=== PATIENT | male | born 2005 | race Caucasian/White ===

== ENCOUNTER 2025-02-12 13:33 | Emergency (ER) | payer MEDICAID, SELFPAY ==
[2025-02-12 13:35] VITALS: BP 134/81; PULSE 64; RESP 16; TEMP 36.8; O2SAT 100
--- NOTE | 2025-02-12 13:38 | ECG_ITS ---
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 Measurements Intervals [place] Rate: 64 P: 10 LA: 147 QRS: 6 QRSD: 86 T: 14 QT: 370 QTc: 382 Interpretive Statements SINUS RHYTHM WITH SINUS ARRHYTHMIA No previous ECG available for comparison Electronically Signed On 02-12-2025 20:04:08 MANAGER AGRICULTURE by Dmitriy Vo M.D. [id number]
--- OUTSIDE RECORDS SUMMARY | 2025-02-12 13:44 | XMS_ITS | Encounter Summary ---
Author Organization [facility] Address [address] [place] [address] Care Team Providers Care Special Needs Babysitter Name Role Phone Unavailable Primary Care Provider Unavailabl e Encounter Details Date Type Department Care Team (Latest Contact Info) Description 2003 Outpatient Historical [facility] [place] [address] [place] [address] Fahad Rich MD [address] [place] [phone] Routine child health exam (Primary Dx); VACCINE DIS COMBINATIONS NEC; VACCINE FOR H FLU TYPE B; VACCINE FOR STREP PNEUMONIAE Social History Tobacco Use Types Packs/Day Years Used Date Smoking Tobacco: Never Assessed Sex and Gender Information Value Date Recorded Sex Assigned at Not on file 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 Gender Identity Not on file Sexual Orientation Not on file documented as of this encounter Plan of Treatment Not on file documented as of this encounter Visit Diagnoses Diagnosis Routine child health exam- Primary Routine infant or child health check Need for prophylactic vaccination and inoculation against other combinations of diseases Need for prophylactic vaccination against Hemophilus influenza type B (Hib) Need for prophylactic vaccination against Streptococcus pneumoniae (pneumococcus) Need for prophylactic vaccination against streptococcus pneumoniae (pneumococcus) documented in this encounter
--- OUTSIDE RECORDS SUMMARY | 2025-02-12 13:44 | XMS_ITS | Encounter Summary ---
Author Organization [facility] Address [address] [facility] Attn: Epic [place] [address] Care Team Providers Care Management Architect Name Role Phone Unavailable Primary Care Provider Unavailabl e Encounter Details Date Type Department Care Team (Late st Contact Info) Description 2003 Inpatient Historical Sandra Cole MD NO ADDRESS ON FILE SINGL BORN IN HOSP-W C/DELIVERY (Primary Dx) Social History Tobacco Use Types Packs/Day Years Used Date Smoking Tobacco: Never Assessed Sex and Gender Information Value Date Recorded Sex Assigned at Not on file 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
--- OUTSIDE RECORDS SUMMARY | 2025-02-12 13:44 | XMS_ITS | Clinical Summary ---
Author Organization [facility] Address [address] [facility] Attn: Epic Prelude ADT [place] [address] Care Team Providers Care Secondary Market Manager Name Role Phone Unavailable Primary Care Provider Unavailabl e Immunizations Immunization Administration Dates Next Due (M-M-R II/PRIORIX)(12 MO UP) MEASLES, MUMPS AND RUBELLA VIRUS VACCINE, 0.5 ML IM/SUBCUT 04/12/2004 (VARIVAX)(12 MOS UP)VARICELL A VIRUS VACCINE (PF) 0.5 ML, SUB CUT 04/12/2004 Dt Dtp Dtap Vaccine 07/21/2004, 4,2003,2003 HIB, Unspecified Formulation 04/12/2004, 2003,2003,2003 Hepatitis B Vaccine 2003,2003,2003 IPV/OPV 2003,2003,2003 Pneumococcal 7-valent conjug ate vaccine IM 04/12/2004,2003,2003,2003 Social History Tobacco Use Types Packs/Day Years Used Date Smoking Tobacco: Never Assessed Sex and Gender Information Value Date Recorded Sex Assigned at Not on file 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
--- OUTSIDE RECORDS SUMMARY | 2025-02-12 13:44 | XMS_ITS | Clinical Summary ---
Author Organization [facility] Address [address] [place] [address] Phone Care Team Providers Care Skein Mercerizing Machine Operator Name Role Phone Unavailable Primary Care Provider Unavailabl e Allergies Active Allergy Reactions Criticality Noted Date Comments Montelukast Unknown 01/19/2022 Medications HYDROcodone-apolonia taminophen (NORCO) 7.5-325 mg TabletIndicatio ns:Penile lesion Take 1 Tablet by mouth every 6 hours as needed for Pain, Moderate. 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 Gender Identity Not on file Sexual Orientation Not on file Last Filed Vital Signs Vital Sign Reading Time Taken Comments Blood Pressure 130/71 01/27/2022 9:33 AM CDT Pulse 73 01/27/2022 9:33 AM CDT Temperature 36.1 C (97 F) 01/27/2022 9:33 AM CDT Respiratory Rate 18 01/27/2022 9:33 AM CDT Oxygen Saturation 100% 01/27/2022 9:33 AM CDT Inhaled Oxygen Concentration - - Weight 117.3 kg (258 lb 9.6 oz) 02/16/2022 1:33 PM METAL MIXER Height 177.8 cm (5' 10 ) 02/16/2022 1:33 PM METAL MIXER Body Mass Index 37.11 02/16/2022 1:33 PM METAL MIXER Plan of Treatment Health Maintenance Due Date Last Done Comments DTAP/TDAP/TD VACCINES (5 - Tdap) 2014 07/21/2004, 2003, 2003, Additional history exists HPV VACCINES (1 - Male 3-dos e series) 2018 INFLUENZA VACCINE (#1) 2024 HEPATITIS B VACCINES Completed 2003, 2003, 2003 Insurance [facility] [employer] [facility] MEDICAID
--- OUTSIDE RECORDS SUMMARY | 2025-02-12 13:44 | XMS_ITS | Encounter Summary ---
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
--- OUTSIDE RECORDS SUMMARY | 2025-02-12 13:44 | XMS_ITS | Encounter Summary ---
Author Organization [facility] Address [address] [place] [address] Care Team Providers Care Lens Engraver Name Role Phone Unavailable Primary Care Provider Unavailabl e Encounter Details Date Type Department Care Team (Latest Contact Info) Description 2003 Outpatient Historical [facility]- [place] [address] [place] [address] Fahad Rich MD [address] [place] [phone] ESOPHAGEAL REFLUX (Primary Dx) Social History Tobacco Use Types Packs/Day Years Used Date Smoking Tobacco: Never Assessed Sex and Gender Information Value Date Recorded Sex Assigned at Not on file 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
--- NOTE | 2025-02-12 14:12 | XRR_ITS ---
PROCEDURE INFORMATION: Exam: XR Chest Exam date and time: 02/12/2025 2:11 PM Age: 19 years old Clinical indication: Pain; Angina pectoris; Additional info: Chest pain TECHNIQUE: Imaging protocol: Radiologic exam of the chest. Views: 1 view. COMPARISON: No relevant prior studies available. FINDINGS: Lungs: Clear. No consolidation. Pleural spaces: No significant pleural effusion. No pneumothorax. Heart/Mediastinum: Within normal limits. Bones/joints: Intact. Other findings: None. XR/XR chest 1V portable [id number] IMPRESSION: No radiographic evidence of acute cardiopulmonary disease.
--- NOTE | 2025-02-12 14:17 | W.ED.CHESTPA ---
HPI - Chest Pain General: Chief Complaint: Chest Pain Stated Complaint: CP Time Seen by Provider: 02/12/25 14:07 History of Present Illness: Patient is a pleasant 19-year-old gentleman with history of HTN that presents to the emergency room due to chest tightness. This started today. Patient states he has been compliant to his metoprolol 100 mg, and lisinopril 20 mg. He does not have any shortness of breath just a tight feeling in his chest. This was much worse before he appeared here with association of palpitations. He denies any cough, cold, fevers. He states that he does watch his salt, and is trying to lose weight. This occurred this morning. This has continued until just before presentation to ED. He does have a family history of elevated blood pressure, with his sister also noted to have high blood pressure. His dad believes he did a young age however cannot exactly remember. Associated symptoms: Reports dyspnea (tight); Deny abdominal pain, fever(s), nausea, palpitations or vomiting Related Data Home Medications ?Medication ?Instructions ?Recorded ?Confirmed cetirizine 10 mg tablet (Allergy 10 mg PO DAILY PRN allergies 02/12/25 02/12/25 Relief (cetirizine)) lisinopril 20 mg tablet 20 mg PO BEDTIME 02/12/25 02/12/25 loratadine 10 mg tablet 10 mg PO DAILY 02/12/25 02/12/25 lovastatin 10 mg tablet 10 mg PO DAILY 02/12/25 02/12/25 metoprolol succinate 100 mg 100 mg PO QAM 02/12/25 02/12/25 tablet,extended release 24 hr Previous Rx's ?Medication ?Instructions ?Recorded propranolol 80 mg capsule,24 80 mg PO Q24H #30 caps 02/12/25 hr,extended release (Inderal LA) Allergies Allergy/AdvReac Type Severity Reaction Status Date / Time No Known Allergies Allergy Verified 02/12/25 13:43 Review of Systems General: Reports: 10 or more systems reviewed and unremarkable except in HPI and below Const: Denies: fever(s) or chills Card: Reports: chest pain (tightness); Denies: palpitations Resp: Reports: dyspnea (tight); Denies: non-productive cough GI: Denies: abdominal pain, nausea or vomiting : Denies: flank pain or difficulty urinating Musc: Denies: neck pain, back pain or extremity pain Psych: Denies: anxiety or depression Physical Exam Const: COMMON NORMALS: no acute distress, average body habitus and patient oriented x3 GENERAL APPEARANCE: cooperative HENMT: COMMON NORMALS: normocephalic and atraumatic HEAD & SCALP: normal to inspection, normocephalic and atraumatic Chest: CHEST: Yes abnormal inspection of the chest, Yes Symmetrical chest wall rise and Yes tenderness (On palpitation) Resp: COMMON NORMALS: normal respiratory effort, No retractions and clear to auscultation bilaterally EFFORT & INSPECTION: Yes able to speak in complete sentences AUSCULTATION: clear to auscultation bilaterally Cardio: COMMON NORMALS: regular rate and regular rhythm RATE: regular rate RHYTHM: regular rhythm HEART SOUNDS: Murmur heart sound present (Midsystolic 05/09) GI: COMMON NORMALS: Normal to inspection, nondistended, normoactive bowel sounds present, Soft to palpation, non-tender and No hepatosplenomegaly present PALPATION: Yes Soft to palpation and Yes No hepatosplenomegaly present : COMMON NORMALS: Yes no CVA tenderness BLADDER/KIDNEY EXAM: Yes no CVA tenderness Back/Pelvis: COMMON NORMALS: no CVA tenderness Extremity: COMMON NORMALS: normal to inspection, full ROM and capillary refill normal Neuro: COMMON NORMALS: patient oriented x3 Course Vital Signs: Vital signs: Vital Signs Temperature 98.3 F 02/12/25 13:35 Pulse Rate 63 02/12/25 16:05 Respiratory Rate 17 02/12/25 16:05 Blood Pressure 147/75 02/12/25 16:05 Pulse Oximetry 100 02/12/25 16:05 Oxygen Delivery Me thod Room Air 02/12/25 15:00 MDM - Chest Pain Medical Decision Making Patient is a 19-year-old gentleman that comes to the ED with acute chest tightness. This was associated with palpitations. He expresses his desire to control his blood pressure, and believes this is the underlying issue. Symptoms have now resolved. As it could be, however given his blood pressure 134/81, it is less likely as the cause of his symptoms, unless since symptoms have resolved this has decreased. Medical Records I reviewed the patient's medical records. Lab Data I reviewed the patient's lab results. 02/12/25 14:57 02/12/25 14:57 Radiology Impressions Chest X-Ray 02/12/25 14:12 IMPRESSION: No radiographic evidence of acute cardiopulmonary disease. Laboratory Results WBC 8.47 10^3/uL (3.29-11.43) 02/12/25 14:57 RBC 5.14 10^6/uL (3.85-5.65) 02/12/25 14:57 Hgb 14.90 g/dL (11.27-16.99) 02/12/25 14:57 Hct 44.4 % (37-53) 02/12/25 14:57 MCV 86.4 fl (82-101) 02/12/25 14:57 MCH 29.0 pg (27-33) 02/12/25 14:57 MCHC 33.6 g/dL (30-55) 02/12/25 14:57 RDW 12.3 % (12.1-15.1) 02/12/25 14:57 Plt Count 201 10^3/cmm (157-399) 02/12/25 14:57 MPV 11.7 fL (7.4-10.4) H 02/12/25 14:57 Neut % (Auto) 60.2 % 02/12/25 14:57 Lymph % (Auto) 31.8 % 02/12/25 14:57 [place] % (Auto) 6.8 % 02/12/25 14:57 Eos % (Auto) 0.8 % 02/12/25 14:57 Baso % (Auto) 0.2 % 02/12/25 14:57 Neut # (Auto) 5.09 10^3/uL (1.8-7.7) 02/12/25 14:57 Lymph # (Auto) 2.7 10^3/uL (0.8-4.8) 02/12/25 14:57 [place] # (Auto) 0.6 10^3/uL (0.2-0.9) 02/12/25 14:57 Eos # (Auto) 0.1 10^3/uL (0.0-0.8) 02/12/25 14:57 Baso # (Auto) 0.0 10^3/uL (0.0-0.1) 02/12/25 14:57 Nucleated RBC % (auto) 0 % 02/12/25 14:57 Nucleated RBCs # 0.0 /100WBC 02/12/25 14:57 D-Dimer <= 0.27 ug/mLFEU (0-0.59) 02/12/25 14:57 Sodium 139 mmol/L (136-145) 02/12/25 14:57 Potassium 4.0 mmol/L (3.5-5.1) 02/12/25 14:57 Chloride 101 mmol/L (98-107) 02/12/25 14:57 Carbon Dioxide 25 mmol/L (22-29) 02/12/25 14:57 Anion Gap 17.0 (5-19) 02/12/25 14:57 BUN 8 mg/dL (6-20) 02/12/25 14:57 Creatinine 0.9 mg/dL (0.7-1.2) 02/12/25 14:57 GFR Calculation 106.5 mL/min (90-130) 02/12/25 14:57 Glucose 90 mg/dL (65-115) 02/12/25 14:57 Calculated Osmolality 286 mOsm/kg (285-295) 02/12/25 14:57 Calcium 9.5 mg/dL (8.5-10.5) 02/12/25 14:57 Total Bilirubin 0.5 mg/dL (0.15-1.2) 02/12/25 14:57 AST 23 U/L (0-40) 02/12/25 14:57 ALT 45 U/L (0-41) H 02/12/25 14:57 Alkaline Phosphatase 45 U/L (40-130) 02/12/25 14:57 Troponin T Baseline < 6 ng/L (0-15) 02/12/25 14:57 NT-Pro-B Natriuret Pep < 36 pg/mL (0-125) 02/12/25 14:57 Total Protein 7.0 g/dL (6.6-8.7) 02/12/25 14:57 Albumin 4.6 g/dL (3.5-5.2) 02/12/25 14:57 Globulin 2.4 g/dL (1.3-4.6) 02/12/25 14:57 TSH 1.19 uIU/mL (0.27-4.20) 02/12/25 14:57 XR interpretation done by ED provider, pending radiology final review ED provider radiology interpretation(s): Patient has EKG Data EKG 1: Interpretation: Normal sinus rhythm Discharge Plan Discharge Patient Disposition: Home Clinical Impression: Atypical chest pain, Uncontrolled hypertension Condition: Stable Prescriptions: New propranolol [Inderal LA] 80 mg capsule,extended release 24 hr 80 mg PO Q24H Qty: 30 0RF Rx Instructions: Take 1 p.o. daily No Action cetirizine [Allergy Relief (cetirizine)] 10 mg tablet 10 mg PO DAILY PRN (Reason: allergies) lisinopril 20 mg tablet 20 mg PO BEDTIME metoprolol succinate 100 mg tablet extended release 24 hr 100 mg PO QAM lovastatin 10 mg tablet 10 mg PO DAILY loratadine 10 mg tablet 10 mg PO DAILY Discharge Orders: Discharge ED (Routine); Ordered 02/12/25 Ordered By: Genoveva Banda Discharge Diet: Low Salt Discharge Activity: Resume usual activity Patient Instructions: DASH Eating Plan (ED), Patient Portal & Jonathon Instructions Activity Restrictions/Additional Instructions: - STOP metoprolol. - New medication at pharmacy: Propranolol ER. This should help improve your blood pressure control. I would start this tonight instead of your metoprolol. - This is a noncardiac chest tightness. Discuss other concerns with your doctor. You have been ruled out for acute heart attack, blood clot, and dissecting aneurysm. Routine issues could include pleurisy, costochondritis, given the fact you had physical exam symptoms of reproducible chest discomfort. -Please call your doctor as noted above to refill your propranolol ER if this works better instead of your metoprolol, and give your doctor feedback. - Return to ED if you do have worsening symptoms. - I gave you information regarding the low sodium diet. Thank you for choosing [facility] for your healthcare needs today. You have been screened and evaluated and felt safe for discharge. Health conditions do change or evolve sometimes and as such it is important that you follow up with your Primary Doctor to be re checked, 3-5 days is a general good time frame for follow up. You are always welcome to return to the ED for re assessment if your symptoms are worsening or you have new concerns Print Language: Amharic Coding Level of Care Code ED Photographer Aerial for Chg Fwd Heart Score HEART Score Components History: Slightly Suspicous EKG: Normal Age: Less than 45 yrs Risk Factors: 1 or 2 Risk Factors Troponin: Baseline Trop <16 ng/L HEART Score RESULT HEART Score: 1
[2025-02-12 14:43] VITALS: BP 129/74; PULSE 58; O2SAT 97
[2025-02-12 15:00] VITALS: BP 148/63; PULSE 58; O2SAT 95
[2025-02-12 15:05] LABS: Hematocrit 44.4 % (37-53); Hemoglobin 14.90 g/dL (11.27-16.99); Mean Corpuscular HGB Conc 33.6 g/dL (30-55); Mean Corpuscular Hemoglobin 29.0 pg (27-33); Mean Corpuscular Volume 86.4 fl (82-101); Nucleated Red Blood Cells % 0 %; Platelet Count 201 10^3/cmm (157-399); Red Blood Count 5.14 10^6/uL (3.85-5.65); White Blood Count 8.47 10^3/uL (3.29-11.43)
[2025-02-12 15:24] LABS: Troponin(5th) Baseline < 6 ng/L (0-15)
[2025-02-12 15:40] LABS: Alanine Aminotransferase 45 U/L (0-41); Albumin Level 4.6 g/dL (3.5-5.2); Alkaline Phosphatase 45 U/L (40-130); Anion Gap 17.0 (5-19); Aspartate Amino Transferase 23 U/L (0-40); Blood Urea Nitrogen 8 mg/dL (6-20); Calcium 9.5 mg/dL (8.5-10.5); Carbon Dioxide 25 mmol/L (22-29); Chloride 101 mmol/L (98-107); Globulin 2.4 g/dL (1.3-4.6); Glucose 90 mg/dL (65-115); NT Pro B Type Natriuretic Pept < 36 pg/mL (0-125); Osmolality Calculated 286 mOsm/kg (285-295); Potassium 4.0 mmol/L (3.5-5.1); Sodium 139 mmol/L (136-145); Thyroid Stimulating Hormone 1.19 uIU/mL (0.27-4.20); Total Protein 7.0 g/dL (6.6-8.7)
[2025-02-12 16:05] VITALS: BP 147/75; PULSE 63; RESP 17; O2SAT 100
== END 2025-02-12 16:06 | disposition home or self-care (01) ==
PROVIDERS: Emergency Provider Physician Assistant
DX: R07.89 Other chest pain (principal); I10 Essential (primary) hypertension
CPT/HCPCS: 36415; 71045; 80053; 83880; 84443; 84484; 85025; 85378; 93005; 99285; J9999